=== PATIENT | female | born 1965 | race Caucasian/White ===

== ENCOUNTER → 2023-06-15 08:02 | Outpatient (REF) | payer BC, SELFPAY | LOC: HWRAD 08:02 | PROVIDERS: ATTENDING PHYSICIAN Internal Medicine | DX: M25.561 Pain in right knee (principal); M25.461 Effusion, right knee; M25.531 Pain in right wrist; M25.532 Pain in left wrist; M54.50 Low back pain, unspecified | CPT/HCPCS: 72110; 73564 ==

== ENCOUNTER → 2023-06-26 17:50 | Outpatient (REF) | payer BC, SELFPAY | LOC: HWWDC 17:50 | PROVIDERS: ATTENDING PHYSICIAN Internal Medicine | DX: Z12.31 Encounter for screening mammogram for malignant neoplasm of breast (principal) | CPT/HCPCS: 77063; 77067 ==